=== PATIENT | male | born 1995 | race African-American/Black ===

== ENCOUNTER 2019-08-15 22:58 | Emergency (ER) | payer OTHER ==
[~2019-08-15] VITALS: Ht 172.7 cm; Wt 104.3 kg
[2019-08-16] MEDS ORDERED: MOBIC15 MG PO (01:02)
[2019-08-16] MEDS ORDERED: CYCLOBENZAPRINE5 MG PO (01:02)
[2019-08-16 01:50] VITALS: BP 133/70
== END 2019-08-16 01:50 | disposition home or self-care (01) ==
LOC: ER 22:58
DX: M54.2 Cervicalgia (principal); M25.552 Pain in left hip; V89.2XXA Person injured in unspecified motor-vehicle accident, traffic, initial encounter; Y93.89 Activity, other specified; Y92.89 Other specified places as the place of occurrence of the external cause; Y99.8 Other external cause status

== ENCOUNTER 2019-08-20 10:21 | Emergency (ER) | payer OTHER ==
[~2019-08-20] VITALS: Ht 172.7 cm; Wt 104.3 kg
[~2019-08-20 10:21] MED LIST: CYCLOBENZAPRINE5 MG PO; MOBIC15 MG PO
[2019-08-20 12:14] VITALS: BP 137/74
== END 2019-08-20 12:15 | disposition home or self-care (01) ==
LOC: ER 10:21
DX: R51 Headache (principal)